=== PATIENT | male | born 1980 | race Hispanic/Latino ===

== ENCOUNTER 2017-02-24 16:52 | Emergency (ER) | payer SELFPAY ==
[~2017-02-24] VITALS: Ht 180.3 cm; Wt 122.2 kg
[~2017-02-24 16:52] MED LIST: AMOXICILLIN250 M1 OR; CEPHALEXIN500 MG PO; LORTAB5 PO; NO MEDS; ULTRAM50 M1 PO
[2017-02-24] MEDS ORDERED: DEPAKOTE250 MG PO (17:29)
[2017-02-24] MEDS ORDERED: HYDRALAZINE10 MG PO (17:30)
[2017-02-24] MEDS ORDERED: TYLENOL 500MG TAB PO (17:30)
[2017-02-24] MEDS ORDERED: ANTIDEPRESSANT (17:30)
[2017-02-24] MEDS ORDERED: VITAMIN D PO (17:30)
[2017-02-24 18:31] LABS: HEMATOCRIT 39.8 % (39.0-50.0); HEMOGLOBIN 14.9 g/dl (14.0-18.0); IMMATURE GRANULOCYTES 0.2 % (0.0-1.0); MEAN CORPUSCULAR HGB 31.4 pG CALC (26.0-32.0); MEAN CORPUSCULAR HGB CONC 37.4 g/L CALC (32.0-36.0); NEUT# 3.07 thou/uL (1.82-7.42); RED BLOOD COUNT 4.74 mill/uL (4.70-6.10); RED CELL DISTRI WIDTH 12.3 % (11.5-15.5)
[2017-02-24 18:48] LABS: ANION GAP 19 (6-22 (CALC)); BUN 10 mg/dL (9-20); BUN/CREATININE RATIO 15 (12-20 (CALC)); CALCIUM 10.2 mg/dL (8.4-10.2); CARBON DIOXIDE 19 mmol/l (22-30); CHLORIDE 102 mmol/l (95-108); CREATININE 0.7 mg/dL (0.7-1.3); GFR > 60 ML/MIN (>=60 (CALC)); GFR FOR AFR.AMER. > 60 ML/MIN (>=60 (CALC)); GLUCOSE 434 mg/dL (75-110); POTASSIUM 4.1 mmol/l (3.5-5.1); SODIUM 135 mmol/l (137-146)
[2017-02-24 19:38] VITALS: BP 166/96
== END 2017-02-24 19:38 | disposition home or self-care (01) | DRG 74 ==
LOC: ED 16:52
PROVIDERS: Family Medicine
DX: G51.0 Bell's palsy (principal); E11.9 Type 2 diabetes mellitus without complications; I10 Essential (primary) hypertension; F43.10 Post-traumatic stress disorder, unspecified; F41.9 Anxiety disorder, unspecified; F17.210 Nicotine dependence, cigarettes, uncomplicated; Z91.14 Patient's other noncompliance with medication regimen

== ENCOUNTER 2021-10-27 00:32 | Emergency (ER) | payer MEDICARE ==
[~2021-10-27] VITALS: Ht 177.8 cm; Wt 109.0 kg
[~2021-10-27 00:32] MED LIST changes: +ANTIDEPRESSANT; +DEPAKOTE250 MG PO; +HYDRALAZINE10 MG PO; +TYLENOL 500MG TAB PO; +VITAMIN D PO
[2021-10-27 00:40] VITALS: BP 165/104
[2021-10-27 00:50] VITALS: BP 136/85
[2021-10-27] MEDS ORDERED: AMOXICILLIN500 MG PO (00:58)
[2021-10-27 01:00] VITALS: BP 134/81
[2021-10-27 01:10] VITALS: BP 136/85
== END 2021-10-27 01:18 | disposition home or self-care (01) ==
LOC: ED 00:32
DX: S00.81XA Abrasion of other part of head, initial encounter (principal); S01.511A Laceration without foreign body of lip, initial encounter; I10 Essential (primary) hypertension; E11.9 Type 2 diabetes mellitus without complications; E78.00 Pure hypercholesterolemia, unspecified; F17.210 Nicotine dependence, cigarettes, uncomplicated; W01.0XXA Fall on same level from slipping, tripping and stumbling without subsequent striking against object, initial encounter; Y92.009 Unspecified place in unspecified non-institutional (private) residence as the place of occurrence of the external cause

== ENCOUNTER 2022-01-13 03:07 | Emergency (ER) | payer MEDICARE ==
[~2022-01-13] VITALS: Ht 177.8 cm; Wt 72.0 kg
[2022-01-13] VITALS (10 sets, daily range): BP systolic 108–143; BP diastolic 65–95
[~2022-01-13 03:07] MED LIST changes: +AMOXICILLIN500 MG PO
[2022-01-13] MEDS ORDERED: RISPERDAL0.5 MG PO (03:16)
[2022-01-13] MEDS ORDERED: HYDROXYZINE HYD25 MG PO (03:16)
[2022-01-13] MEDS ORDERED: BENZTROPINE0.5 MG PO (03:17)
[2022-01-13] MEDS ORDERED: TESSALON PERLE100 MG PO ×2 (03:18→04:51)
[2022-01-13] MEDS ORDERED: HYZAAR1 TA1 PO (03:19)
[2022-01-13] MEDS ORDERED: METFORMIN HCL500 M2 PO (03:20)
[2022-01-13] MEDS ORDERED: AMOX/K CLAV875 M1 PO (03:21)
[2022-01-13] MEDS ORDERED: SERTRALINE50 MG PO (03:21)
[2022-01-13 04:00] LABS: HEMATOCRIT 40.3 % (39.0-50.0); HEMOGLOBIN 14.5 g/dl (14.0-18.0); IMMATURE GRANULOCYTES 0.6 % (0.0-5.0); MEAN CELL VOLUME 82.8 fL CALC (80.0-100.0); MEAN CORPUSCULAR HGB 29.8 pG CALC (26.0-32.0); NEUT# 7.66 thou/uL (1.82-7.42); RED BLOOD COUNT 4.87 mill/uL (4.70-6.10); RED CELL DISTRI WIDTH 11.8 % (11.5-15.5)
[2022-01-13 04:10] LABS: ALBUMIN 4.1 g/dL (3.2-5.0); ANION GAP 12 (6-22 (CALC)); BUN 10 mg/dL (9-20); BUN/CREATININE RATIO 15 (12-20 (CALC)); CARBON DIOXIDE 26 mmol/l (22-30); CHLORIDE 100 mmol/l (95-108); CPK 29 u/l (52-200); CREATININE 0.7 mg/dL (0.7-1.3); GFR FOR AFR.AMER. > 60 ML/MIN (>=60 (CALC)); GFR OTHER RACES > 60 ML/MIN (>=60 (CALC)); MAGNESIUM 1.8 mg/dL (1.6-2.3); SGOT/AST 17 u/l (17-59); SODIUM 134 mmol/l (137-146); TOTAL PROTEIN 7.8 g/dL (6.3-8.2)
[2022-01-13 04:15] LABS: ALKALINE PHOSPHATASE 66 u/l (38-126); BILIRUBIN, TOTAL 0.7 mg/dL (0.0-1.4)
[2022-01-13 04:16] LABS: URINE BILIRUBIN - DIPSTICK NEGATIVE (NEGATIVE); URINE BLOOD DIPSTICK NEGATIVE (NEGATIVE); URINE COLOR YELLOW; URINE GLUCOSE - DIPSTICK >=1000 mg/dL (NEGATIVE); URINE KETONE TRACE mg/dL (NEGATIVE); URINE LEUK ESTERASE NEGATIVE (NEGATIVE); URINE PROTEIN - DIPSTICK TRACE mg/dL (NEG-TRACE); URINE SPECIFIC GRAVITY 1.025; URINE UROBILINOGEN - DIPSTICK 0.2 E.U./dL (0.2)
[2022-01-13 04:18] LABS: URINE NITRITE - DIPSTICK NEGATIVE (Negative)
[2022-01-13 04:19] LABS: MYOGLOBIN 17 ng/mL (0 - 121)
[2022-01-13 04:34] LABS: D-DIMER 0.28 mg/L (0.19-0.60)
[2022-01-13 04:42] LABS: ACT PARTIAL THROMBO TIME 26.7 SECONDS (20.0-32.5); PROTHROMBIN TIME 9.6 SECONDS (9.0-12.5)
[2022-01-13] MEDS ORDERED: TORADOL PO (04:51)
== END 2022-01-13 05:10 | disposition home or self-care (01) ==
LOC: ED 03:07
PROVIDERS: Family Medicine
DX: S29.012A Strain of muscle and tendon of back wall of thorax, initial encounter (principal); J06.9 Acute upper respiratory infection, unspecified; I10 Essential (primary) hypertension; E11.9 Type 2 diabetes mellitus without complications; E78.00 Pure hypercholesterolemia, unspecified; F17.200 Nicotine dependence, unspecified, uncomplicated; X50.0XXA Overexertion from strenuous movement or load, initial encounter; Z79.84 Long term (current) use of oral hypoglycemic drugs; Z20.822 Contact with and (suspected) exposure to COVID-19

== ENCOUNTER 2023-02-18 10:42 | Emergency (ER) | payer MEDICARE ==
[2023-02-18] VITALS (11 sets, daily range): BP systolic 116–137; BP diastolic 63–87
[~2023-02-18] VITALS: Ht 177.8 cm; Wt 104.0 kg
[~2023-02-18 10:42] MED LIST changes: +AMOX/K CLAV875 M1 PO; +BENZTROPINE0.5 MG PO; +HYDROXYZINE HYD25 MG PO; +HYZAAR1 TA1 PO; +METFORMIN HCL500 M2 PO; +RISPERDAL0.5 MG PO; +SERTRALINE50 MG PO; +TESSALON PERLE100 MG PO; +TORADOL PO
[2023-02-18 13:17] LABS: BASO% 0.3 % (0-3); EOS% 0.9 % (0-8); HEMATOCRIT 41.1 % (39.0-50.0); HEMOGLOBIN 14.3 g/dl (14.0-18.0); IMMATURE GRANULOCYTES 0.1 % (0.0-5.0); LYMPH% 23.7 % (15-41); MEAN CELL VOLUME 84.6 fL CALC (80.0-100.0); MEAN CORPUSCULAR HGB 29.4 pG CALC (26.0-32.0); MEAN CORPUSCULAR HGB CONC 34.8 g/dL CAL (32.0-36.0); MONO% 6.3 % (2-13); NEUT# 6.39 thou/uL (1.82-7.42); NEUT% 68.7 % (42-76); RED BLOOD COUNT 4.86 mill/uL (4.70-6.10); RED CELL DISTRI WIDTH 11.9 % (11.5-15.5)
[2023-02-18 13:32] LABS: ALBUMIN 3.8 g/dL (3.2-5.0); ALKALINE PHOSPHATASE 58 u/l (38-126); ANION GAP 11 (6-22 (CALC)); BUN 16 mg/dL (9-20); BUN/CREATININE RATIO 25 (12-20 (CALC)); CARBON DIOXIDE 24 mmol/l (22-30); CHLORIDE 102 mmol/l (95-108); CREATININE 0.6 mg/dL (0.7-1.3); GFR FOR AFR.AMER. > 60 ML/MIN (>=60 (CALC)); GFR OTHER RACES > 60 ML/MIN (>=60 (CALC)); POTASSIUM 3.7 mmol/l (3.5-5.1); SGOT/AST 18 u/l (17-59); SODIUM 134 mmol/l (137-146); TOTAL PROTEIN 6.4 g/dL (6.3-8.2)
[2023-02-18 13:37] LABS: BILIRUBIN, TOTAL 0.3 mg/dL (0.2-1.3)
[2023-02-18] MEDS ORDERED: KEFLEX500 MG PO (15:10)
== END 2023-02-18 16:18 | disposition home or self-care (01) ==
LOC: ED 10:42
PROVIDERS: Family Medicine
DX: L60.0 Ingrowing nail (principal); I10 Essential (primary) hypertension; E11.9 Type 2 diabetes mellitus without complications; E78.5 Hyperlipidemia, unspecified; F17.200 Nicotine dependence, unspecified, uncomplicated; Z79.84 Long term (current) use of oral hypoglycemic drugs